=== PATIENT | male | born 1955 | race Caucasian/White ===

== ENCOUNTER 2021-05-23 09:51 | Inpatient (IN) ==
[2021-05-23 11:31] LABS: Hematocrit 25 % (42-52); Hemoglobin 8.2 g/dL (14.0-18.0); Mean Corpuscular HGB Conc 33 g/dL (31-36); Mean Corpuscular Hemoglobin 29 pg (27-31); Mean Corpuscular Volume 89 fL (80-94); Mean Platelet Volume 8.3 fL (7.4-10.4); Platelet Count 112 10^3/uL (150-450); Red Cell Distribution Width 17 % (10-15); White Blood Count 4.1 10^3/uL (3.5-10.8)
[2021-05-23 11:39] LABS: Urine Appearance Clear; Urine Bilirubin Negative (Negative); Urine Blood 2+ (Negative); Urine Color Yellow; Urine Glucose Negative (Negative); Urine Ketones Negative (Negative); Urine Nitrite Negative (Negative); Urine Protein Negative (Negative); Urine Specific Gravity 1.005 (1.002-1.030); Urine Urobilinogen Negative (Negative)
[2021-05-23 11:49] LABS: Albumin 3.3 g/dL (3.2-5.2); C Reactive Protein 113.88 mg/L (<8.01); Calcium 8.1 mg/dL (8.6-10.3); EGFR African American 54.6 (>60); EGFR Non-African American 45.1 (>60); Globulin 3.4 g/dL (2-4); Potassium 4.5 mmol/L (3.5-5.0); Total Bilirubin 1.2 mg/dL (0.2-1.0); Total Protein 6.7 g/dL (6.4-8.9)
[2021-05-23 12:11] LABS: Urine Bacteria 1+ (Absent); Urine Red Blood Cell Trace(0-2/hpf) (Absent); Urine White Blood Cell Trace(0-5/hpf) (Absent)
[2021-05-23 12:32] LABS: Anisocytosis 1+; Polychromasia 1+
[2021-05-23 12:33] LABS: ABS Lymphocytes 1.1 10^3/ul (1.0-4.8); ABS Monocytes 1.2 10^3/ul (0-0.8); ABS Neutrophils 1.7 10^3/ul (1.5-7.7); Eosinophil % 0.3 %; Lymphocyte % 26.8 %; Nucleated Red Blood Cells % 0.1
[2021-05-23] MEDS ORDERED: Lactated Ringers 1000 ml BAG 1,000 ML IV ONE ×2 (12:34→21:27)
[2021-05-23 13:38] LABS: INR 1.14 (0.86-1.15)
[2021-05-23] MEDS ORDERED: Pantoprazole VIAL 40 MG VIAL IV ONE (15:08)
[2021-05-23] MEDS ORDERED: Ondansetron 4 mg VIAL 2 MG/ML 2 ml VIAL IV PRN (17:22)
[2021-05-23] MEDS ORDERED: Dextrose 50% Syringe 50 ml 25 GM/50 ML SYRINGE IV PUSH PRN (18:21)
[2021-05-23 19:26] LABS: RBC Parasite Smear POSITIVE (No Parasite)
[2021-05-23 22:05] LABS: Corrected Retic Count 1.9 % (0.5-1.5); Hematocrit 22 % (42-52); Hematocrit for Retic CNT 22 % (42-52); Hemoglobin 7.7 g/dL (14.0-18.0); Immature Retic Fraction 0.62; RBC Retic Count 2.54 10^6/uL (4.18-5.48)
[2021-05-23 22:27] LABS: Urine Sodium Concentration < 18 mmol/L
[2021-05-23 22:34] LABS: Direct Bilirubin 0.5 mg/dL (0.03-0.18)
[2021-05-23 22:35] LABS: Renal Sodium Excretion 0.46 %; Urine Creatinine Concentration 44.25 mg/dL
[2021-05-23] MEDS: Nicotine PATCH 21 MG/24 HR PATCH TRANSDERM SCH (22:35)
[2021-05-23] MEDS: Azithromycin 500 mg/250 ml NS 500 MG/250 ML BAG IVPB SCH (22:37)
[2021-05-23 23:00] LABS: Creatinine, Serum 1.54 mg/dL (0.51-0.95)
[2021-05-24 00:44] LABS: % Iron Saturation 19 % (15-55); Iron 36 ug/dL (50-212); Total Iron Binding Capacity 190 mcg/dL (250-450); Transferrin 136 mg/dL (203-362); Unsaturated Iron Binding < 175 ug/dL
[2021-05-24 01:10] LABS: Ferritin > 1500.0 ng/mL (24-336)
[2021-05-24] MEDS ORDERED: Pantoprazole VIAL 40 MG VIAL IV ONE (03:00)
[2021-05-24] MEDS: Pantoprazole VIAL 40 MG VIAL IV SCH ×2 (06:35→17:40)
[2021-05-24 08:29] LABS: Hematocrit 24 % (42-52); Hemoglobin 8.2 g/dL (14.0-18.0); Mean Corpuscular HGB Conc 34 g/dL (31-36); Mean Corpuscular Hemoglobin 30 pg (27-31); Mean Corpuscular Volume 89 fL (80-94); Mean Platelet Volume 8.1 fL (7.4-10.4); Platelet Count 108 10^3/uL (150-450); Red Blood Count 2.73 10^6 /uL (4.18-5.48); Red Cell Distribution Width 16 % (10-15); White Blood Count 4.1 10^3/uL (3.5-10.8)
[2021-05-24 09:06] LABS: Calcium 7.6 mg/dL (8.6-10.3); EGFR African American 65.8 (>60); EGFR Non-African American 54.4 (>60); Potassium 4.8 mmol/L (3.5-5.0)
[2021-05-24] MEDS: Nicotine PATCH 21 MG/24 HR PATCH TRANSDERM SCH (09:30)
[2021-05-24 10:54] LABS: ABS Lymphocytes 1.3 10^3/ul (1.0-4.8); ABS Monocytes 1.2 10^3/ul (0-0.8); ABS Neutrophils 1.6 10^3/ul (1.5-7.7); Anisocytosis 1+; Eosinophil % 0.3 %; Lymphocyte % 32.5 %; Nucleated Red Blood Cells % 0.1; Polychromasia 1+
[2021-05-24] MEDS ORDERED: fentaNYL 100 mcg/2 ml 50 MCG/ML VIAL ONE (14:15)
[2021-05-24] MEDS ORDERED: Midazolam 10 mg/10 ml VIAL 1 mg/ml 10 ml VIAL (10 mg) ONE (14:15)
[2021-05-24] MEDS: Azithromycin 500 mg/250 ml NS 500 MG/250 ML BAG IVPB SCH (21:58)
[2021-05-25 05:49] LABS: ABS Lymphocytes 1.5 10^3/ul (1.0-4.8); ABS Monocytes 1.1 10^3/ul (0-0.8); ABS Neutrophils 2.2 10^3/ul (1.5-7.7); Eosinophil % 0.5 %; Hematocrit 24 % (42-52); Hemoglobin 8.3 g/dL (14.0-18.0); Lymphocyte % 30.5 %; Mean Corpuscular HGB Conc 34 g/dL (31-36); Mean Corpuscular Hemoglobin 30 pg (27-31); Mean Corpuscular Volume 89 fL (80-94); Mean Platelet Volume 8.1 fL (7.4-10.4); Nucleated Red Blood Cells % 0.1; Platelet Count 131 10^3/uL (150-450); Red Blood Count 2.75 10^6 /uL (4.18-5.48); Red Cell Distribution Width 16 % (10-15); White Blood Count 4.8 10^3/uL (3.5-10.8)
[2021-05-25] MEDS: Pantoprazole VIAL 40 MG VIAL IV SCH (06:01)
[2021-05-25 06:04] LABS: Albumin 2.8 g/dL (3.2-5.2); Albumin/Globulin Ratio 0.9 (1-3); Calcium 7.7 mg/dL (8.6-10.3); EGFR African American 70.8 (>60); EGFR Non-African American 58.5 (>60); Magnesium 1.9 mg/dL (1.9-2.7); Potassium 4.6 mmol/L (3.5-5.0); Total Bilirubin 0.9 mg/dL (0.2-1.0); Total Protein 5.8 g/dL (6.4-8.9)
[2021-05-25] MEDS: Nicotine PATCH 21 MG/24 HR PATCH TRANSDERM SCH (08:59)
[2021-05-25 12:02] VITALS: BP 104/58
[2021-05-26 10:27] LABS: Anaplasma phagocytophilum Negative (Negative); B. miyamotoi PCR, B Negative (Negative); Babesia divergens/MO-1 Negative (Negative); Babesia ducani Negative (Negative); Ehrlichia chaffeensis Negative (Negative); Ehrlichia ewingii/canis Negative (Negative); Ehrlichia muris eauclairensis Negative (Negative)
== END 2021-05-25 12:45 | disposition home or self-care (01) | DRG 724 ==
LOC: ED 09:51 → MEDTELE 17:22
PROVIDERS: ADMIT Internal Medicine; ATTEND Internal Medicine